=== PATIENT | male | born 1965 | race Caucasian/White ===

== ENCOUNTER → 2019-03-22 | Day surgery (SDC) | payer BC ==
[2019-03-09 15:05] LABS: BASOPHILS % 0.5 % (0.0-1.0); EOSINOPHILS # (AUTO) 0.1 (0.0-0.4); EOSINOPHILS % 2.1 % (0.0-6.0); HEMATOCRIT 40.3 % (38.2-49.6); HEMOGLOBIN 14.2 g/dL (14.0-18.0); LYMPHOCYTES # (AUTO) 1.8 (1.0-3.2); LYMPHOCYTES % 30.5 % (18.0-39.1); MEAN CORPUSCULAR HEMOGLOBIN 36.3 pg (28-32); MEAN CORPUSCULAR HGB CONC 35.2 g/dL (31-35); MEAN CORPUSCULAR VOLUME 103.1 fL (81-99); MONOCYTES # (AUTO) 0.5 (0.2-0.8); MONOCYTES % 7.9 % (4.4-11.3); NEUTROPHILS # (AUTO) 3.4 (2.1-6.9); NEUTROPHILS % 58.8 % (38.7-80.0); PLATELET COUNT 130 x10e3/uL (140-360); RED BLOOD COUNT 3.91 x10e6/uL (4.3-5.7); RED CELL DISTRIBUTION WIDTH 11.9 % (11.7-14.4)
[~2019-03-22] MED LIST: AMLODIPINE BESYL5 MG PO; ATORVASTATIN CA20 MG PO; CARVEDILOL6.25 MG PO; CIALIS20 MG PO; FENTANYL CITRATE/PF 100MCG/2 ML INJ ONE; FLEXERIL PO; GABAPENTIN300 MG PO; GLUCAGON FOR INJ 1 MG VIAL ONE; HYOSCYAMINE 0.125 MG TAB ONE; KETAMINE HCL INJ 50 MG/ML 10 ML VIAL ONE; LISINOPRIL10 MG PO; METFORMIN HCL500 MG PO; METOCLOPRAMIDE HCL 10 MG/2ML VIAL ONE; MICROZIDE12.5 MG PO; MIDAZOLAM HCL 5MG/ML 2ML VIAL ONE; NORCO 10-325 T1 EACH PO; NORVASC2.5 MG PO; ONDANSETRON HCL INJ 2MG/ML 2ML 2 MG/ML VIAL ONE; PANTOPRAZOLE SO40 MG PO; PRINIVIL10 MG PO; PROPOFOL IV EMULSION 10 MG/ML 50 ML VIAL ONE; REGLAN10 MG PO; TESTOSTERONE2.5 GM TOP; [UNRECOGNIZED DRUG - REMARK]
--- OUTSIDE RECORDS SUMMARY | 2019-03-22 10:38 | XMS REPORT ---
[facility] Address Unknown Phone Unavailable Care Team Providers Care Manager Paper Name Role Phone PROSPER JEREZ Unavailable Unavailable Payers Payer Name Policy Type Policy Number Effective Date Expiration Date Problems This patient has no known problems. Allergies, Adverse Reactions, Alerts Allergy Name Allergy Type Status Severity Reaction(s) Onset Date Inactive Date Treating Clinician Comments penicillin V DA Active U 2018-11-26 00:00:00 Not Converted 80. See Text. DA Active U 2018-11-26 00:00:00 penicillin V DA Active U 2008-10-11 00:00:00 Not Converted 80. See Text. DA Active U 2008-10-11 00:00:00 No Known Contrast Allergies DA Active U 2007-10-10 00:00:00 No Known Food Allergies DA Active U 2007-10-10 00:00:00 No Known Other Allergies DA Active U 2007-10-10 00:00:00 PENICILLIN DA Active U 2007-10-10 00:00:00 Medications This patient has no known medications. Encounters Start Date/Time End Date/Time Encounter Type Admission Type Attending [facility] Facility Care Department Encounter ID 2018-03-07 00:00:00 2018-03-07 00:00:00 Outpatient [facility] [id number] 2018-01-30 00:00:00 2018-01-30 00:00:00 Outpatient [facility] [id number] 2017-10-08 11:52:44 2017-10-08 11:52:44 Outpatient [facility] [id number] 2017-10-08 10:37:26 2017-10-08 10:37:26 Outpatient [facility] [id number] 2017-05-31 08:13:03 2017-05-31 08:13:03 Outpatient [facility] [id number] 2017-05-29 10:53:48 2017-05-29 10:53:48 Outpatient [facility] [id number] 2017-04-10 00:00:00 2017-04-10 00:00:00 Outpatient [facility] [id number] 2017-01-30 00:00:00 2017-01-30 00:00:00 Outpatient [facility] [id number] 2017-01-07 15:03:03 2017-01-07 15:03:03 Outpatient [facility] [id number] 2017-01-07 14:48:22 2017-01-07 14:48:22 Outpatient [facility] [id number] 2017-01-07 13:53:19 2017-01-07 13:53:19 Outpatient [facility] [id number] 2016-12-30 00:00:00 2016-12-30 00:00:00 Outpatient [facility] [id number] 2016-12-30 00:00:00 2016-12-30 00:00:00 Outpatient [facility] [id number] 2016-12-18 10:15:49 2016-12-18 10:15:49 Outpatient [facility] [id number] 2016-12-18 09:41:53 2016-12-18 09:41:53 Outpatient [facility] [id number] 2016-12-18 08:25:54 2016-12-18 08:25:54 Outpatient [facility] [id number] 2016-11-28 15:36:45 2016-11-28 15:36:45 Outpatient [facility] [id number] 2016-11-27 00:00:00 2016-11-27 00:00:00 Outpatient [facility] [id number] 2016-11-27 00:00:00 2016-11-27 00:00:00 Outpatient [facility] [id number] 2016-11-26 16:21:27 2016-11-26 16:21:27 Outpatient [facility] [id number] 2016-11-26 09:38:56 2016-11-26 09:38:56 Outpatient [facility] [id number] 2016-11-22 10:50:13 2016-11-22 10:50:13 Outpatient [facility] [id number] 2016-11-22 10:29:23 2016-11-22 10:29:23 Outpatient [facility] [id number] 2016-11-21 00:00:00 2016-11-21 00:00:00 Outpatient [facility] [id number] 2016-11-20 00:00:00 2016-11-20 00:00:00 Outpatient [facility] [id number] 2016-11-18 15:27:43 2016-11-18 15:27:43 Outpatient [facility] [id number] 2016-11-18 15:16:04 2016-11-18 15:16:04 Outpatient [facility] [id number] 2016-11-14 13:39:40 2016-11-14 13:39:40 Outpatient [facility] [id number] 2016-11-14 11:45:46 2016-11-14 11:45:46 Outpatient [facility] [id number] 2016-11-14 09:54:25 2016-11-14 09:54:25 Outpatient [facility] [id number] 2016-11-05 10:54:44 2016-11-05 10:54:44 Outpatient [facility] [id number] 2016-11-05 09:29:02 2016-11-05 09:29:02 Outpatient [facility] [id number] 2016-11-01 00:00:00 2016-11-01 00:00:00 Outpatient [facility] [id number] 2016-10-28 00:00:00 2016-10-28 00:00:00 Outpatient [facility] [id number] 2016-10-09 00:00:00 2016-10-09 00:00:00 Outpatient [facility] [id number] 2016-09-01 00:00:00 2016-09-01 00:00:00 Outpatient [facility] [id number] 2016-08-19 00:00:00 2016-08-19 00:00:00 Outpatient [facility] [id number] 2016-08-14 17:29:00 2016-08-14 17:29:00 Emergency [facility] [id number] 2016-08-14 15:03:24 2016-08-14 15:03:24 Outpatient [facility] [id number] Results Test Description Test Time Test Comments Text Results Atomic Results Result Comments - CT ABD PELVIS W WO CONT 2018-11-26 15:23:00 Name: NADINE ROSE [facility] : 1965 Age/S: 53 / M [address] [place] [address] Unit #: [id number] Loc: [place] [address] Phys: Brittney Nugent MD Acct: [id number] Dis Date: Status: REG CLI PHONE #: [phone] Exam Date: 11/26/2018 1128 FAX #: [phone] Reason: D69.6, THROMBOCYTOPENIA. EXAMS: CPT CODE: [id number] CT ABD PELVIS W WO CONT 91039 CT abdomen and pelvis pre and postcontrast: Multiplanar helical imaging acquired from diaphragm to pubic symphysis before and after IV injection 100 cc Isovue-300. Oral contrast used for the study. CT imaging performed at this location utilizes radiation dose optimization techniques which include one or more of the following: -Automated exposure control -Adjustment of the mA and/or kV according to patient size -Use of iterative reconstruction technique CT Radiation Dose DLP 1473 mGy-cm HISTORY: Thrombocytopenia, bloating, nausea area COMPARISON: None. FINDINGS: The lung bases are clear. Borderline splenectomy. The spleen is 13.3 cm craniocaudad dimension. No focal lesions in the spleen. There are 2 circumscribed low- density hepatic cysts, largest in the inferior right lobe of the liver me asures only 16 mm. Biliary ducts are not dilated. Gallbladder, pancreas and adrenal glands are unremarkable. The abdominal aorta is normal caliber without aneurysm. 2 small nonobstructing stones in the lower pole left kidney each about 2 mm. Vascular calcifications in the renal pedicle on each side. No enhancing renal mass, hydronephrosis. Small cortical cysts upper pole left kidney. No adenopathy in the retroperitoneum or in the pelvis. Loops of large and small bowel are normal caliber. No bowel obstruction. There are a few scattered sigmoid colon diverticula without diverticulitis. Prostate, bladder and perirectal soft tissues unremarkable. No ascites. Review on bone window shows no acute bony abnormality. No vertebral compression. IMPRESSION: 1. Borderline splenomegaly. 2. Small cysts in the liver and left kidney. 3. Small nonobstructing left nephrolithiasis. SL: [id number] PAGE 1 Signed Report (CONTINUED) Name: NADINE ROSE [facility] : 1965 Age/S: 53 / M [address] [place] [address] Unit #: [id number] Loc: [place] [address] Phys: Brittney Nugent MD Acct: [id number] Dis Date: Status: REG CLI PHONE #: [phone] Exam Date: 11/26/2018 1128 FAX #: [phone] Reason: D69.6, THROMBOCYTOPENIA. EXAMS: CPT CODE: [id number] CT ABD PELVIS W WO CONT 81217 <Continued> at 1523 Reported and signed by: Norman Lanza M.D. CC: Brittney Nugent Technologist:Oral Montes, RT (R) CTDI: DLP: Trnscb Date/Time: 11/26/2018 (1523) t.ETG Orig Print D/T: S: 11/26/2018 (6330) PAGE 2 Signed Report - XR CHEST 2 V 2018-11-26 10:55:00 FAX: Y Brittney Nugent MD [phone] [place]: St: REG Name: NADINE ROSE [facility] : 1965 Age/S: 53/M [address] [place] [address] Unit #: [id number] Loc: [place] [address] Phys: Brittney Nugent MD Acct: [id number] Dis Date: Status: REG CLI PHONE #: [phone] Exam Date: 11/26/2018 1034 FAX #: [phone] Reason: D69.6 , THROMBOCYTOPENIA. EXAMS: CPT CODE: [id number] XR CHEST 2 V 00805 CHEST RADIOGRAPHS - PA AND LATERAL: COMPARISON: October 11, 2007 CLINICAL HISTORY: D69.6 , THROMBOCYTOPENIA. The cardioperic ardial silhouette is within normal limits. No acute infiltrate is noted. There is minor biapical pleural thickening. No vascular congestion or pneumothorax. IMPRESSION: No acute pulmonary abnormality. at 1055 Reported and signed by: Isaiah Houston M.D. CC: Brittney Nugent Technologist: VENKAT Dudley) Trnscrd Date/Time/By: 11/26/2018 (8389) : By: [email or web address] Orig Print D/T: S: 11/26/2018 (6084) PAGE 1 Signed Report MRI KNEE LEFT WO [place] [address] Patient Name: NADINE ROSE MR #: [id number] : 1965 Age/Sex: 51/M Req #: [id number] Adm Physician: Ordered by: PROSPER JEREZ DO Report #: [id number] Location: MRI Room/Bed: Procedure: [id number] MRI/MRI KNEE LEFT WO Exam Date: 01/10/17 Exam Time: 1510 REPORT STATUS: Signed TECHNIQUE: Magnetic resonance imaging of the LEFT KNEE was performed WITHOUT injected contrast. HISTORY: Left knee pain COMPARISON: None available. FINDINGS: LIGAMENTS AND TENDONS: ACL: Intact PCL: Intact Collateral ligaments: Intact Iliotibial band: Unremarkable Popliteal tendon: Intact Extensor mechanism: Intact JOINT: Menisci: Medial: Degenerative signal with vertical tear involving the posterior horn sagittal image 7. Lateral: Complex tearing with maceration involving the body and posterior horn. Articular Cartilage: Medial Compartment: Diffuse partial thickness cartilage loss with areas of high-grade erosion. Lateral Compartment: Diffuse partial thickness cartilage loss with areas of high-grade erosion. Patellofemoral Compartment: Diffuse partial thickness cartilage loss with areas of high-grade erosion. Joint Fluid: The amount of fluid within the joint is within physiologic limits. BONE: No focal or infiltrative bone marrow replacing abnormality. No acute fracture. SOFT TISSUES: Otherwise, unremarkable. IMPRESSION: Tricompartmental degenerative arthrosis, lateral compartment predominant. Medial and lateral meniscus tearing with maceration of the lateral meniscus. Signed by: Dr. Cruz Vo M.D. on 01/13/2017 8:27 AM Dictated By: CRUZ VO MD 6 Transcribed By: MAGDI on 01/13/17826 COPY TO: PROSPER JEREZ DO MRI ANKLE RIGHT WO [place] [address] Patient Name: NADINE ROSE MR #: [id number] : 1965 Age/Sex: 51/M Req #: [id number] Adm Physician: Ordered by: PROSPER JEREZ DO Report #: [id number] Location: MRI Room/Bed: Procedure: [id number] MRI/MRI ANKLE RIGHT WO Exam Date: 01/10/17 Exam Time: 1510 REPORT STATUS: Signed TECHNIQUE: Magnetic resonance imaging of the RIGHT ANKLE was performed WITHOUT injected contrast. COMPARISON: None available. HISTORY: Pain, history of sprain FINDINGS: LIGAMENTS: Medial Complex: Deltoid ligament intact. Lateral Complex: Attenuation of the anterior talofibular ligament and calcaneofibular ligament related to remote injury. TENDONS: Medial: Insertional tendinopathy of the posterior tibial tendon. Peritendinous edema. Flexor tendons are otherwise intact. Lateral: Peroneal tendons intact. Anterior: Anterior tibial and extensor tendons intact. Accessory peroneal tendon. Achilles: Achilles tendon intact. BONES: No focal or infiltrative bone marrow replacing abnormality. No acute fracture or osteonecrosis. JOINTS: Cartila ge: Midfoot degenerative arthrosis with flattening of the medial longitudinal arch. Other: Fluid within the joints is within physiologic limits. SOFT TISSUES: Mild infiltration of the sinus Tarsi. Tarsal tunnel clear. Chronic plantar fascial thickening. 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 Midfoot degenerative arthrosis. Scarring of the lateral ankle ligaments. Signed by: Dr. Cruz Vo M.D. on 01/13/2017 8:41 AM Dictated By: CRUZ VO MD 0 Transcribed By: MAGDI on 01/13/17840 COPY TO: PROSPER JEREZ DO MRI ANKLE LEFT WO [place] [address] Patient Name: NADINE ROSE MR #: [id number] : 1965 Age/Sex: 51/M Req #: [id number] Adm Physician: Ordered by: PROSPER JEREZ DO Report #: [id number] Location: MRI Room/Bed: Procedure: [id number] MRI/MRI ANKLE LEFT WO Exam Date: 01/10/17 Exam Time: 0 REPORT STATUS: Signed TECHNIQUE: Magnetic resonance imaging of the RIGHT ANKLE was performed WITHOUT injected contrast. COMPARISON: None available. HISTORY: Pain, history of sprain FINDINGS: LIGAMENTS: Medial Complex: Deltoid ligament intact. Lateral Complex: Thickening of the anterior talofibular ligament and calcaneofibular ligament related to remote injury. TENDONS: Medial: Insertional tendinopathy and high grade tearing of the posterior tibial tendon. Peritendinous edema. Flexor tendons are otherwise intact. Lateral: Peroneal tendons intact. Anterior: Anterior tibial and extensor tendons intact. Accessory peroneal tendon. Achilles: Insertional tendinopathy. BONES: No focal or infiltrative bone marrow replacing abnormality. No acute fracture or osteonecrosis. JOINTS: Cartilage: Midfoot degenerative arthrosis with flattening of the medial longitudinal arch and hindfoot valgus. Other: Fluid within the joints is within physiologic limits. SOFT TISSUES: Mild infiltration of the sinus Tarsi. Tarsal tunnel clear. Chronic plantar fascial thickening. Susceptibility artifact in the plantar hindfoot tissues. IMPRESSION: Insertional posterior tibial tendinopathy with high grade tearing and moderate PTT dysfunction. Midfoot degenerative arthrosis. Scarring of the lateral ankle ligaments. Signed by: Dr. Cruz Vo M.D. on 01/13/2017 8:49 AM Dictated By: CRUZ VO MD 8 Transcribed By: MAGDI on 01/13/17848 COPY TO: PROSPER JEREZ DO
--- NOTE | 2019-03-22 15:26 | Operative Report ---
DATE OF PROCEDURE: 03/22/2019 SURGEON: Michael Angulo MD PROCEDURES: EGD with biopsies and also a colonoscopy. INDICATIONS FOR EGD: Dyspepsia. INDICATIONS FOR COLONOSCOPY: Surveillance colonoscopy, personal history of numerous colon polyps. MEDICATIONS: The patient was done under MAC, please see anesthesiologist's note. PROCEDURE IN DETAIL: With the patient in left lateral decubitus position, a flexible fiberoptic Olympus gastroscope was introduced into the esophagus under direct visualization without any difficulty. There was grade 1 to 2 esophageal varices noted without active bleeding or stigmata of recent hemorrhage. The scope was then advanced with ease into the stomach. Mucosa overlying the antrum and the body revealed some patchy intense erythema and low-grade to moderate edema. Biopsies were obtained and sent to stain for H. pylori. Two minute nodules in the antrum were biopsied. The pylorus was intubated with ease and the scope was advanced all the way to the second portion of the duodenum. Biopsies were obtained from the proximal second portion and the duodenal bulb to rule out sprue. A minute nodule was also noted in the duodenal bulb and that was biopsied. The scope was then withdrawn back into the stomach and retroflexed, mucosa overlying the fundus and the cardia appeared to be within normal limits. The scope was then straightened out, it was subsequently withdrawn. The patient tolerated the procedure well. IMPRESSION: 1. Grade 1 to 2 esophageal varices without active bleeding or stigmata of recent hemorrhage. 2. Gastritis, biopsied, biopsies sent to stain for H. pylori. 3. Gastric nodules, x2, antrum, biopsied. 4. Duodenal bulb nodule, biopsied. 5. Rule out sprue. PLAN: 1. Follow up histology. 2. Initiate Protonix 40 mg one p.o. q.a.m. a.c. PROCEDURE IN DETAIL: The patient was then turned around after adequate lubrication of the anal canal, a flexible fiberoptic Olympus colonoscope was inserted into the rectum with ease and advanced all the way to the cecum. The right colon with some retained fecal material, but visualization was fair. One polyp was hot snared from the cecum and the scope was then withdrawn slowly and one additional polyp was hot snared from the ascending colon. Approximately, 1.2 cm sessile polypoid lesion was noted in the transverse colon, that was removed per snare electrocautery and site was hemoclipped x1. The descending colon grossly was unremarkable. Thirteen polyps were hot snared from the sigmoid colon and 6 polyps were hot snared from the rectum. The scope was then retroflexed into the distal rectum and small internal hemorrhoids were noted, none of which was actively bleeding. The scope was then straightened out, it was subsequently withdrawn. The patient tolerated the procedure well. IMPRESSION: 1. Cecal polyp x1, hot snared. 2. Ascending colon polyp x1, hot snared. 3. Transverse colon polyp x1, approximately 1.2 cm in size, sessile removed per snare electrocautery and site hemoclipped x1. 4. Sigmoid colon polyps x13, hot snared. 5. Rectal polyps x6, hot snared. 6. Internal hemorrhoids, none actively bleeding. PLAN: 1. Follow up histology. 2. Initiate high-fiber, low-fat diet. 3. Initiate high-fiber supplement. 4. The patient will need a followup colonoscopy in one in 2 to 3 months to remove synchronous polyps. Michael Angulo MD [facility] [place] /[id number]
[2019-03-22 15:45] VITALS: BP 130/73
== END | disposition home or self-care (01) ==
LOC: OR 10:35
PROVIDERS: ATTEND Internal Medicine Gastroenterology
DX: I85.00 Esophageal varices without bleeding (principal); K21.9 Gastro-esophageal reflux disease without esophagitis; K29.70 Gastritis, unspecified, without bleeding; K63.5 Polyp of colon; K62.1 Rectal polyp; K64.8 Other hemorrhoids; D69.3 Immune thrombocytopenic purpura; R73.03 Prediabetes; E78.00 Pure hypercholesterolemia, unspecified; Z87.891 Personal history of nicotine dependence; G47.33 Obstructive sleep apnea (adult) (pediatric)
CPT/HCPCS: 36415 ×2; 43239; 45385; 82948; 85025; 93005; J1610; J2250; J2405; J2704; J2765; J3010; 45378; 45384

== ENCOUNTER → 2019-04-08 | Outpatient (CLI) | payer BC ==
[~2019-04-08] MED LIST changes: -FENTANYL CITRATE/PF 100MCG/2 ML INJ ONE; -GLUCAGON FOR INJ 1 MG VIAL ONE; -HYOSCYAMINE 0.125 MG TAB ONE; -KETAMINE HCL INJ 50 MG/ML 10 ML VIAL ONE; -METOCLOPRAMIDE HCL 10 MG/2ML VIAL ONE; -MIDAZOLAM HCL 5MG/ML 2ML VIAL ONE; -ONDANSETRON HCL INJ 2MG/ML 2ML 2 MG/ML VIAL ONE; -PROPOFOL IV EMULSION 10 MG/ML 50 ML VIAL ONE
--- NOTE | 2019-04-08 12:27 | Diagnostic Imaging Report ---
EXAM: US ABDOMEN COMPLETE DATE: 04/08/2019 10:56 AM INDICATION: Abdominal pain COMPARISON: None FINDINGS: The pancreas is not well-visualized secondary to prominent adjacent bowel gas. The visualized portion appears unremarkable. The liver is at the upper limits of normal for size measuring 18.0 cm in length. There is a 1.6 x 1.6 x 1.6 cm simple cyst identified within the inferior right hepatic lobe. No other focal hepatic abnormality is identified. The main portal vein is patent with antegrade flow and diameter of 0.9 cm, within normal limits. The gallbladder is unremarkable. There is no evidence for cholelithiasis, gallbladder wall thickening, or pericholecystic fluid. There is no intra or extrahepatic biliary ductal dilatation. The common bile duct measures 4 mm. Sonographic Archuleta's sign is negative. The spleen is at the upper limits of normal for size measuring 12.9 cm but otherwise demonstrates an unremarkable sonographic appearance. The kidneys are normal in size measuring 12.9 cm in length on the right and 13.0 cm in length on the left. Cortical thickness and echogenicity are within normal limits. There is no evidence for solid renal mass, hydronephrosis, or shadowing calculi. The visualized portions the IVC are within normal limits. The aorta is not well-visualized secondary to prominent overlying bowel gas. There is no ascites visualized. IMPRESSION: Hepatic cyst. Otherwise, unremarkable abdominal ultrasound examination. Signed by: Dr. Rashard Vilchis MD on 04/08/2019 12:23 PM
== END ==
LOC: US 10:50
PROVIDERS: ATTEND Internal Medicine Gastroenterology
DX: R10.84 Generalized abdominal pain (principal)
CPT/HCPCS: 76700